=== PATIENT | female | born 1980 | race Two or more races ===

== ENCOUNTER 2021-03-21 10:23 | Emergency (ER) | payer OTHER ==
[~2021-03-21] VITALS: Ht 162.6 cm; Wt 81.6 kg
[2021-03-21 13:00] VITALS: BP 132/68
[2021-03-21] MEDS ORDERED: ACETAMINOPHEN 500 MG TAB PO ONE (13:15)
== END 2021-03-21 13:56 | disposition home or self-care (01) ==
LOC: ER 10:23
DX: S00.03XA Contusion of scalp, initial encounter (principal); W18.39XA Other fall on same level, initial encounter; Y93.89 Activity, other specified; Y92.89 Other specified places as the place of occurrence of the external cause; Y99.0 Civilian activity done for income or pay
CPT/HCPCS: 70450

== ENCOUNTER 2025-05-03 09:02 | Emergency (ER) | payer OTHER ==
[~2025-05-03] VITALS: Ht 162.6 cm; Wt 78.8 kg
--- NOTE | 2025-05-03 09:32 | ED.PDOC ---
GI ASSESSMENT HPI Comments A 44 YEAR OLD FEMALE PRESENTS TO THE ED WITH COMPLAINT OF LLQ ABDOMINAL PAIN WITH N/V. PATIENT STATES SHE HAS BEEN EXPERIENCING LEFT LOWER QUADRANT ABDOMINAL PAIN WITH OCCASIONAL NAUSEA AND VOMITING FOR THE PAST 1 WEEK. PATIENT NOTES SHE HAS ALSO BEEN EXPERIENCING MILD CONSTIPATION. PATIENT DENIES DYSURIA, HEMATURIA, FLANK PAIN, FEVER, CHILLS, SHORTNESS OF BREATH, CHEST PAIN, HEADACHE, OR OTHER COMPLAINTS. NO OTHER SYMPTOMS OR MODIFYING FACTORS AT THIS TIME. PATIENT IS ALERT, ORIENTED X 4, AND HAS STEADY GAIT. Chief Complaint: Abdominal Pain Time Seen by MD: 09:06 Primary Care Provider: NOREENIES Reviewed Notes: Nurses Notes, Medications, Allergies Allergies: Coded Allergies: NO KNOWN ALLERGIES (Unverified , 03/21/21) Information Source: Patient Mode of Arrival: Ambulatory Timing: Weeks Duration: Since onset Prehospital treatment: None Quality: Aching, Cramping Vomitus: Food Particles Stool: Minimal Severity: Moderate Recent: None Recent Hx of: None Pain Location: LLQ Modifying Factors: Nothing Associated sign and symptoms: Nausea, Vomiting, Abdominal Pain Past Medical History PAST MEDICAL HISTORY: Denies Surgical History: Denies all surgeries 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 Family History Family History: Reviewed,noncontributory to illness Social History Smoker: Non-Smoker Alcohol: Denies ETOH Use Drugs: Denies Drug Use Lives In: Home Constitutional: denies: chills, diaphoresis, fatigue, fever, malaise, sweats, weakness, others EENTM: denies: blurred vision, double vision, ear bleeding, ear discharge, ear drainage, ear pain, ear ringing, eye pain, eye redness, hearing loss, mouth pain, mouth swelling, nasal discharge, nose bleeding, nose congestion, nose pain, photophobia, tearing, throat pain, throat swelling, voice changes, others Respiratory: denies: cough, hemoptysis, orthopnea, SOB at rest, shortness of breath, SOB with excertion, stridor, wheezing, others Cardiovascular: denies: chest pain, dizzy spells, diaphoresis, Dyspnea on exertion, edema, irregular heart beat, left arm pain, lightheadedness, palpitations, PND, syncope, others Gastrointestinal: reports: abdominal pain, constipated, nausea; denies: abdomen distended, blood streaked bowels, diarrhea, dysphagia, difficulty swallowing, hematemesis, melena, poor appetite, poor fluid intake, rectal bleeding, rectal pain, vomiting, others Genitourinary: denies: abnormal vagina bleeding, burning, dyspareunia, dysuria, flank pain, frequency, hematuria, incontinence, pain, , vagina discharge, urgency, others Neurological: denies: dizziness, fainting, headache, left sided numbness, left sided weakness, numbness, paresthesia, pre-existing deficit, right sided numbness, right sided weakness, seizure, speech problems, tingling, tremors, weakness, others Musculoskeletal: denies: back pain, gout, joint pain, joint swelling, muscle pain, muscle stiffness, neck pain, others Integumetry: denies: bruises, change in color, change in hair/nails, dryness, laceration, lesions, lumps, rash, wounds, others Allergic/Immunocompromised: denies: Difficulty Healing, Frequent Infections, Hives, Itching, others Hematologic/Lymphatic: denies: anemia, blood clots, easy bleeding, easy bruising, swollen glands, others Endocrine: denies: excessive hunger, excessive sweating, excessive thirst, excessive urination, flushing, intolerance to cold, intolerance to heat, unexplained weight gain, unexplained weight loss, others Psychiatric: denies: anxiety, bipolar disorder, depression, hopeless, panic disorder, schizophrenia, sleepless, suicidal, others All Other Systems: Reviewed and Negative Physical Exam General Appearance: No Apparent Distress, Normal HEENT: Normal ENT Inspection, PERRL/EOMI, Pharynx Normal, TMs Normal Neck: Full Range of Motion, Non-Tender, Normal, Normal Inspection Respiratory: Chest Non-Tender, Lungs Clear, No Accessory Muscle Use, No Respiratory Distress, Normal Breath Sounds Cardiovascular: No Edema, No JVD, No Murmur, No Gallop, Normal Peripheral Pulses, Regular Rate/Rhythm Breast Exam: Deferred Gastrointestinal: LLQ, No Organomegaly, No Pulsatile Mass, Normal Bowel Sounds, Soft, Tenderness (LEFT LOWER ABD, NO GUARDING AND REBOUND TENDERNESS. 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 Was a procedure done?: No GI differential Dx Differential Diagnosis: Bowel Obstruction, Constipation, Diverticular disease, Inflammatory BD, Pancreatitis, UTI, Kidney Stone X-Ray, Labs, Meds, VS Vital Signs Date Time Temp Pulse Resp B/P (MAP) Pulse Ox O2 Delivery O2 Flow Rate FiO2 05/03/25 10:36 77 18 99 Room Air 05/03/25 10:36 98.7 77 18 120/85 (97) 99 98.7 05/03/25 09:04 98.0 82 18 128/74 98 98.0 Lab Test 05/03/25 09:19 Range/Units White Blood Count 5.7 4.4-10.8 10^3/uL Red Blood Count 4.42 4.0-5.20 10^6/uL Hemoglobin 11.5 L 12.2-16.2 g/dL Hematocrit 34.9 L 36.0-46.0 % Mean Corpuscular Volume 79.0 L 80.0-100.0 fL Mean Corpuscular Hemoglobin 26.1 L 28.0-32.0 pg Mean Corpuscular Hemoglobin Concent 33.0 32.0-36.0 g/dL Red Cell Distribution Width 15.7 H 11.8-14.3 % Platelet Count 362 140-450 10^3/uL Mean Platelet Volume 7.9 6.9-10.8 fL Neutrophils (%) (Auto) 50.0 37.0-80.0 % Lymphocytes (%) (Auto) 38.8 10.0-50.0 % Monocytes (%) (Auto) 8.6 0.0-12.0 % Eosinophils (%) (Auto) 1.8 0.0-7.0 % Basophils (%) (Auto) 0.8 0.0-2.0 % Neutrophils # (Auto) 2.8 1.6-8.6 10 ^3/uL Lymphocytes # (Auto) 2.2 0.4-5.4 10 ^3/uL Monocytes # (Auto) 0.5 0-1.3 10 ^3/uL Eosinophils # (Auto) 0.1 0-0.8 10 ^3/uL Basophils # (Auto) 0 0-0.2 10 ^3/uL Nucleated Red Blood Cells 0.0 % Sodium Level 138 136-145 mmol/L Potassium Level 4.0 3.5-5.1 mmol/L Chloride Level 104 98-107 mmol/L Carbon Dioxide Level 24 20-31 mmol/L Anion Gap 10 5-15 Blood Urea Nitrogen 11 9-23 mg/dL Creatinine 0.66 0.550-1.02 mg/dL Glomerular Filtration Rate Calc 110 >90 mL/min BUN/Creatinine Ratio 16.7 10.0-20.0 Serum Glucose 90 74-106 mg/dL Calcium Level 9.0 8.7-10.4 mg/dL Indication: LEFT LOWER ABD PAIN WITH N/VX ONE WEEK Technique: CT axial images of the abdomen and pelvis are obtained without contrast. Coronal and sagittal reformats were obtained. Radiation Dose Information: CTDI volume is 8.39 mGy. Dose-length product is 438 mGy*cm Comparison: None FINDINGS: There is limited interpretation of the abdomen and pelvis without administration of intravenous contrast. Lung bases demonstrate no pleural effusion. 2.2 cm pericardial cyst. Adrenal glands, spleen, pancreas and liver unremarkable in shape. No CT evidence for cholelithiasis. No hydronephrosis/ nephrolithiasis. Stomach is partially distended. Small bowel loops are normal in caliber. Moderate volume stool in the colon. Bladder is partially distended. No free pelvic fluid. No inguinal lymphadenopathy. [id number] thoracolumbar degenerative disc disease most pronounced at L4- 5. IMPRESSION: Limited evaluation without contrast. No hydronephrosis / nephrolithiasis. Moderate volume stool in the colon. Other findings as described. ATED BY: GARRY FRANCO MD DICTATED DATE/TIME: 05/03/251014 SIGNED BY: GARRY FRANCO MD SIGNED DATE/TIME: 05/03/251014 CC: X-Ray, Labs, Meds, VS Comment EXTERNAL MEDICAL RECORDS REVIEWED: [NONE] INDEPENDENT HISTORIANS: [NONE] SOCIAL DETERMINANTS OF HEALTH: [NONE] LABS ORDERED: CBC, BMP, UA REVIEWED AND INTERPRETED RESULTS: NORMAL IMAGING ORDERED: CT ABD/PEL TREATMENTS ORDERED: PT DECLINED PAIN MEDICATION AT THIS TIME. PROCEDURES PERFORMED: NONE CRITICAL CARE TIME: NONE I HAVE DISCUSSED THE PATIENT WITH THE ATTENDING PHYSICIAN DR. BO AND HE AGREES WITH THE PATIENT'S PLAN OF CARE AND DISPOSITION. BASED ON HISTORY OF PRESENT ILLNESS, AND PHYSICAL EXAM, PATIENT WILL BE DISCHARGED HOME. DISCUSSED PLAN FOR DISCHARGE HOME WITH RX [LACTULOSE AND TYLENOL 1GM]. MEDICATION WARNINGS GIVEN. SHARED DECISION MAKING: DISCUSSED WITH PATIENT THAT THEIR WORKUP WAS NORMAL. PATIENT INSTRUCTED TO FOLLOW UP WITH PRIMARY CARE PROVIDER IN 1-2 DAYS FOR RE- EVALUATION OF SYMPTOMS. PATIENT VERBALIZES UNDERSTANDING TO RETURN TO ED FOR NEW OR WORSENING SYMPTOMS OR IF FOLLOW UP WITH PCP CANNOT BE OBTAINED. PATIENT FEELS COMFORTABLE GOING HOME AT THIS TIME. ALL QUESTIONS ADDRESSED AT TIME OF DISCHARGE. Images Reviewed?: Images reviewed and evaluated by me Time of 1ST Reevaluation: 11:00 Reevaluation 1ST: Improved Patient Education/Counseling: Diagnosis, Treatment, Need For Follow Up Family Education/Counseling: Diagnosis, Treatment, Need For Follow Up Medical Screening: No EMC Exist At This Time SEPSIS Sepsis Screen Date sepsis recognized/suspect: May 03, 2025 Time Sepsis recognized/suspect: 904 Recent Procedure: No On Antibiotic Therapy: No Respiratory Rate >20: No Heart Rate >90: No Temp<36 C (96.8 F) or >38.3 C: No SBP <90 or MAP <65 mmHG: No New Acute Mental Status Change: No Is the patient on CPAP, BIPAP,: No Physician Orders Urinalysis (05/03/25 09:13) Ct Ab Pel Wo Con-No Oral Or Iv (05/03/25 09:27) Vital Signs Date Time Temp Pulse Resp B/P (MAP) Pulse Ox O2 Delivery O2 Flow Rate FiO2 05/03/25 10:36 77 18 99 Room Air 05/03/25 10:36 98.7 77 18 120/85 (97) 99 98.7 05/03/25 09:04 98.0 82 18 128/74 98 98.0 Laboratory Tests Test 05/03/25 09:19 White Blood Count 5.7 10^3/uL (4.4-10.8) Departure 1 Departure Time of Disposition: 11:00 Impression: Primary Impression: Acute constipation Disposition: 01 HOME / SELF CARE / HOMELESS Condition: Stable Additional Instructions: FOLLOW-UP WITH PCP IN 1 TO 2 DAYS. TAKE MEDICATIONS PRESCRIBED. RETURN TO ED FOR ANY NEW OR WORSENING SYMPTOMS. e-Prescriptions Acetaminophen (Tylenol Extra Strength Fo) 500 Mg Tab 1000 MG PO BID, #30 TAB Prov: JUAN LUIS CABRERA 05/03/25 Lactulose (Lactulose) 10 Gm/15 Ml Fabienne 30 ML PO BID, #250 ML Prov: JUAN LUIS CABRERA 05/03/25 Discharged With: Self Critical Care Note Critical Care Time?: No Stability Stability form required: No I personally scribed for JUAN LUIS CABRERA ([email or web address]) on 05/03/25 at 09:32. Electronically submitted by Deo Fields ([email or web address]). I personally scribed for JUAN LUIS CABRERA ([email or web address]) on 05/03/25 at 10:33. Electronically submitted by Deo Fields ([email or web address]). JUAN LUIS CABRERA May 03, 2025 09:32
[2025-05-03 09:40] LABS: Chloride 104 mmol/L (98-107); Potassium 4.0 mmol/L (3.5-5.1); Sodium 138 mmol/L (136-145)
[2025-05-03 09:46] LABS: Glucose 90 mg/dL (74-106)
[2025-05-03 09:50] LABS: Nucleated Red Blood Cells % 0.0 %
[2025-05-03 09:52] LABS: Hematocrit 34.9 % (36.0-46.0); Hemoglobin 11.5 g/dL (12.2-16.2); Mean Corpuscular Hemoglobin 26.1 pg (28.0-32.0); Mean Corpuscular Volume 79.0 fL (80.0-100.0)
[2025-05-03 09:54] LABS: Anion Gap 10 (5-15)
[2025-05-03 09:58] LABS: Calcium 9.0 mg/dL (8.7-10.4); Carbon Dioxide 24 mmol/L (20-31)
[2025-05-03 10:00] LABS: BUN/Creatinine Ratio 16.7 (10.0-20.0); Blood Urea Nitrogen 11 mg/dL (9-23)
--- NOTE | 2025-05-03 10:30 | DVH ---
Indication: LEFT LOWER ABD PAIN WITH N/VX ONE WEEK Technique: CT axial images of the abdomen and pelvis are obtained without contrast. Coronal and sagit celso reformats were obtained. Radiation Dose Information: CTDI volume is 8.39 mGy. Dose-length product is 438 mGy*cm Comparison: None FINDINGS: There is limited interpretation of the abdomen and pelvis without administration of intravenous contr ast. Lung bases demonstrate no pleural effusion. 2.2 cm pericardial cyst. Adrenal glands, spleen, pancreas and liver unremarkable in shape. No CT evidence for cholelithiasis. No hydronephrosis/ nephrolithiasis. Stomach is partially distended. Small bowel loops are normal in caliber. Moderate volume stool in the colon. Bladder is partially distended. No free pelvic fluid. No inguinal lymphadenopathy. [id number] thoracolumbar degenerative disc disease most pronounced at L4-5. IMPRESSION: Limited evaluation without contrast. No hydronephrosis / nephrolithiasis. Moderate volume stool in the colon. Other findings as described.
[2025-05-03 10:36] VITALS: BP 120/85; PULSE 77; RESP 18; TEMP 98.7; O2SAT 99
[2025-05-03] MEDS ORDERED: LACT10SO3 PO (10:42)
[2025-05-03] MEDS ORDERED: ACET-1304 PO (10:42)
[2025-05-03 11:17] LABS: Urine Protein, UAD Negative (Negative)
== END 2025-05-03 10:51 | disposition home or self-care (01) ==
LOC: ER 09:02
DX: K59.00 Constipation, unspecified (principal)
CPT/HCPCS: 36415; 74176; 80048; 81001; 85025

== ENCOUNTER 2025-05-15 15:14 | Emergency (ER) | payer OTHER, MEDICAID ==
[~2025-05-15] VITALS: Ht 162.6 cm; Wt 77.2 kg
[~2025-05-15 15:14] MED LIST: ACET-1304 PO; LACT10SO3 PO
[2025-05-15 16:18] LABS: Hemoglobin 11.8 g/dL (12.2-16.2); Nucleated Red Blood Cells % 0.0 %
[2025-05-15 16:19] LABS: Hematocrit 36.1 % (36.0-46.0); Mean Corpuscular Hemoglobin 26.0 pg (28.0-32.0); Mean Corpuscular Volume 79.2 fL (80.0-100.0)
[2025-05-15 16:28] LABS: Anion Gap 10 (5-15); Carbon Dioxide 25 mmol/L (20-31); Chloride 104 mmol/L (98-107); Potassium 4.2 mmol/L (3.5-5.1); Sodium 139 mmol/L (136-145)
[2025-05-15 16:29] LABS: Calcium 9.4 mg/dL (8.7-10.4)
[2025-05-15 16:34] LABS: BUN/Creatinine Ratio 33.9 (10.0-20.0); Blood Urea Nitrogen 20 mg/dL (9-23); Glucose 81 mg/dL (74-106)
[2025-05-15 16:37] LABS: Acetaminophen < 2.0 UG/ML (10.0-20.0); Salicylate < 3.0 mg/dL (-30)
--- NOTE | 2025-05-15 16:38 | ED.PDOC ---
Psychiatric HPI Comments 44 y/o F, with no prior psychiatric history presents to the ED for CC of suicidal ideation. Patient relays, that she has been having suicidal ideations [id number]. Patient states, suicidal ideation stemmed from retaliation at work by boss, constantly accusing her of work not being done. Patient reports plan of, driving car into incoming traffic. Patient further reports, intermittent auditory hallucinations. Patient denies homicidal ideations or visual hallucinations. No other symptoms or modifying factors are present at this time. Chief Complaint: Suicidal Time Seen by MD: 16:00 Primary Care Provider: CHIP Reviewed Notes: Nurses Notes, Medications, Allergies Information Source: Patient Mode of Arrival: Ambulatory Severity: Able to Care for Self Severity of Pain: None Severity of Mental Status: Moderate Severity of Symptoms: Moderate Timing: Weeks Duration: Since onset Prehospital treatment: None Ingestion: None Current substance abuse: None Stressors: Work History of: None Quality: Hallucinations Location: None Location of pain or injury: None Associated signs and symptoms: None Past Medical History PAST MEDICAL HISTORY: Denies Surgical History: Denies all surgeries 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 Family History Family History: Reviewed,noncontributory to illness Social History Smoker: Non-Smoker Alcohol: Denies ETOH Use Drugs: Denies Drug Use Lives In: Home Constitutional: denies: chills, diaphoresis, fatigue, fever, malaise, sweats, weakness, others EENTM: denies: blurred vision, double vision, ear bleeding, ear discharge, ear drainage, ear pain, ear ringing, eye pain, eye redness, hearing loss, mouth pain, mouth swelling, nasal discharge, nose bleeding, nose congestion, nose pain, photophobia, tearing, throat pain, throat swelling, voice changes, others Respiratory: denies: cough, hemoptysis, orthopnea, SOB at rest, shortness of breath, SOB with excertion, stridor, wheezing, others Cardiovascular: denies: chest pain, dizzy spells, diaphoresis, Dyspnea on exe rtion, edema, irregular heart beat, left arm pain, lightheadedness, palpitations, PND, syncope, others Gastrointestinal: denies: abdomen distended, abdominal pain, blood streaked bowels, constipated, diarrhea, dysphagia, difficulty swallowing, hematemesis, melena, nausea, poor appetite, poor fluid intake, rectal bleeding, rectal pain, vomiting, others Genitourinary: denies: abnormal vagina bleeding, burning, dyspareunia, dysuria, flank pain, frequency, hematuria, incontinence, pain, , vagina discharge, urgency, others Neurological: denies: dizziness, fainting, headache, left sided numbness, left sided weakness, numbness, paresthesia, pre-existing deficit, right sided numbness, right sided weakness, seizure, speech problems, tingling, tremors, weakness, others Musculoskeletal: denies: back pain, gout, joint pain, joint swelling, muscle pain, muscle stiffness, neck pain, others Integumetry: denies: bruises, change in color, change in hair/nails, dryness, laceration, lesions, lumps, rash, wounds, others Allergic/Immunocompromised: denies: Difficulty Healing, Frequent Infections, Hives, Itching, others Hematologic/Lymphatic: denies: anemia, blood clots, easy bleeding, easy bruising, swollen glands, others Endocrine: denies: excessive hunger, excessive sweating, excessive thirst, excessive urination, flushing, intolerance to cold, intolerance to heat, unexplained weight gain, unexplained weight loss, others Psychiatric: reports: suicidal; denies: anxiety, bipolar disorder, depression, hopeless, panic disorder, schizophrenia, sleepless, others All Other Systems: Reviewed and Negative Physical Exam General Appearance: No Apparent Distress, Normal HEENT: Normal ENT Inspection, Pharynx Normal Neck: Full Range of Motion, Non-Tender, Normal, Normal Inspection Respiratory: Chest Non-Tender, Lungs Clear, No Accessory Muscle Use, No Respiratory Distress, Normal Breath Sounds Cardiovascular: No Edema, No Murmur, No Gallop, Normal Peripheral Pulses, Regular Rate/Rhythm Breast Exam: Deferred Gastrointestinal: No Organomegaly, Non Tender, No Pulsatile Mass, Normal Bowel Sounds, Soft Genitalia: Deferred Pelvic: Deferred Rectal: Deferred Extremities: No calf tenderness, Normal capillary refill, Normal inspection, Normal range of motion, Non-tender, No pedal edema Musculoskeletal : Apperance: Normal Neurologic: 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 Was a procedure done?: No Psych Differential Dx Psych. Differential Dx: Anxiety, Bipolar Disorder, Depression, Hopeless, Schizoprenia, Suicidal OD Differential Dx: Depression, Suicidal Attempt, Suicidal Gesture X-Ray, Labs, Meds, VS Vital Signs Date Time Temp Pulse Resp B/P (MAP) Pulse Ox O2 Delivery O2 Flow Rate FiO2 05/16/25 05:26 99.0 82 17 124/83 (97) 100 99.0 05/15/25 21:00 80 18 132/82 (99) 100 05/15/25 19:30 97.9 86 20 141/81 (101) 100 97.9 05/15/25 19:30 86 20 100 Room Air* 0 21 05/15/25 18:00 77 17 130/85 (100) 99 05/15/25 17:06 98 Room Air* 0 21 05/15/25 17:03 88 17 98 Room Air* 0 21 05/15/25 16:00 98.4 85 17 121/87 (98) 99 98.4 05/15/25 15:20 97.9 82 16 124/84 82 97.9 Lab Test 05/15/25 19:00 05/15/25 16:05 Range/Units Urine Test Negative Negative Urine Opiates Screen Neg NEGATIVE Urine Fentanyl Screen Neg NEGATIVE Urine Barbiturates Screen Neg NEGATIVE Urine Phencyclidine Screen Neg NEGATIVE Urine Amphetamines Screen Neg NEGATIVE Urine Benzodiazepines Screen Neg NEGATIVE Urine Cocaine Screen Neg NEGATIVE Urine Cannabinoids Screen Neg NEGATIVE White Blood Count 7.2 4.4-10.8 10^3/uL Red Blood Count 4.55 4.0-5.20 10^6/uL Hemoglobin 11.8 L 12.2-16.2 g/dL Hematocrit 36.1 36.0-46.0 % Mean Corpuscular Volume 79.2 L 80.0-100.0 fL Mean Corpuscular Hemoglobin 26.0 L 28.0-32.0 pg Mean Corpuscular Hemoglobin Concent 32.8 32.0-36.0 g/dL Red Cell Distribution Width 15.1 H 11.8-14.3 % Platelet Count 389 140-450 10^3/uL Mean Platelet Volume 7.7 6.9-10.8 fL Neutrophils (%) (Auto) 52.8 37.0-80.0 % Lymphocytes (%) (Auto) 37.2 10.0-50.0 % Monocytes (%) (Auto) 8.2 0.0-12.0 % Eosinophils (%) (Auto) 1.2 0.0-7.0 % Basophils (%) (Auto) 0.6 0.0-2.0 % Neutrophils # (Auto) 3.8 1.6-8.6 10 ^3/uL Lymphocytes # (Auto) 2.7 0.4-5.4 10 ^3/uL Monocytes # (Auto) 0.6 0-1.3 10 ^3/uL Eosinophils # (Auto) 0.1 0-0.8 10 ^3/uL Basophils # (Auto) 0 0-0.2 10 ^3/uL Nucleated Red Blood Cells 0.0 % Sodium Level 139 136-145 mmol/L Potassium Level 4.2 3.5-5.1 mmol/L Chloride Level 104 98-107 mmol/L Carbon Dioxide Level 25 20-31 mmol/L Anion Gap 10 5-15 Blood Urea Nitrogen 20 9-23 mg/dL Creatinine 0.59 0.550-1.02 mg/dL Glomerular Filtration Rate Calc 113 >90 mL/min BUN/Creatinine Ratio 33.9 H 10.0-20.0 Serum Glucose 81 74-106 mg/dL Calcium Level 9.4 8.7-10.4 mg/dL Salicylates Level < 3.0 -30 mg/dL Acetaminophen Level < 2.0 L 10.0-20.0 UG/ML Plasma/Serum Blood Alcohol 28.7 H <10 mg/dL Time of 1ST Reevaluation: 16:30 Reevaluation 1ST: Unchanged Time of 2ND Reevaluation: 20:50 Reevaluation 2ND: Unchanged (Still waiting tele psych eval. Was signed out to Dr. Jeffery) Patient Education/Counseling: Diagnosis, Treatment Family Education/Counseling: No Family Present Additional Information Reviewed patient's previous visit(s): 05/03/25 DX:ACUTE CONSTIPATION The following tests were ordered, and results were reviewed by me: DRUG SCREEN, ACETAMINOPHEN, SALICYLATE, URINE ETHANOL, TEST UA, CBC, BMP I discussed treatments and results with medical personnel and: PATIENT Comprehensive systems review obtained and negative except for what is stated in the HPI. Departure 1 Departure Time of Disposition: 05:39 Impression: Primary Impression: Depression Additional Impressions: Suicidal ideation Patient needs psychiatric hold for evaluation Disposition: 01 HOME / SELF CARE / HOMELESS Condition: Stable Additional Instructions: Additional instructions: Please read all instructions provided in this packet carefully. You MUST follow-up with your primary care/family doctor in 1 to 2 days. If you are unable to see your primary care/family doctor, please return to our emergency room for re-assessment and re-evaluation in 1 to 2 days. Return to the emergency room here in our facility or to the nearest ER [facility] if your symptoms change or worsen. CONSULTATIONS: you MUST Follow-up for consultation as soon as possible with: ----Psychiatry in 1-2 days. Please call for appointment. You MUST call the consultants office yourself to make an appointment. You may need to arrange that through your insurance and/or your primary/family doctor. If you are unable to see the executive talent acquisition consultant in 1 to 2 days, you must return to our emergency room (or any other ER of your choice) for re-assessment and re- evaluation. Adequate fluid hydration. Although you have been discharged from the Emergency Department, this does not mean that you have a "clean bill of health". No definitive diagnosis for your symptoms has been made today. It is possible that you are in the process of developing a serious illness. This is why you must return to the ED without fail if any new or worsening symptoms develop. Per Dr. Paula Plan: Does not warrant involuntary inpatient psychiatric hospitalization or 5150 hold No acute safety concerns Pt can be safely discharged back to current residence Recommend d/c pt on Amitriptyline 50 mg qhs prn insomnia/SCHULTZ x 30 days Risks/benefits/alternative treatments discussed, informed consent provided by pt Supportive tx provided, discussed safety plan with pt Encouraged mindfulness techniques (reading, walking, meditation, journaling, exercise, deep breathing) during times of stress Please provide pt MH resources prior to discharge per pts request for psychotherapy Encouraged f/u with PCP for routine medical/preventive care Instructed pt to call/text [phone] or return to ED if MH symptoms worsen or new onset SI/HI upon discharge Pt verbalized understanding and is receptive to above tx plan This case was discussed with ED nurse/provider and all parties in agreement with above tx plan Isidoro Paula MD Plan discussed with: Patient ISIDORO PAULA MD e-Prescriptions Amitriptyline Hcl (Amitriptyline Hcl) 50 Mg Tab 1 TAB PO QHSP PRN for 30 Days, #30 TAB 0 Refills Prov: NOMAN JEFFERY DO 05/16/25 Discharged With: Self Critical Care Note Critical Care Time?: No Stability Stability form required: No Heart Score Heart Score: Heart Score Response (Comments) Value History N/A 0 EKG N/A 0 Age N/A 0 Risk Factors N/A 0 Troponin N/A 0 Total 0 I personally scribed for VERITO YIN MD ([email or web address]) on 05/15/25 at 16:38. Electronically submitted by Ana Travis ([email or web address]). I personally scribed for VERITO YIN MD ([email or web address]) on 05/15/25 at 17:11. Electronically submitted by Ana Travis ([email or web address]). VERITO YIN MD May 15, 2025 16:38 NOMAN JEFFERY DO May 16, 2025 05:41
[2025-05-15 17:03] VITALS: PULSE 88; RESP 17; O2SAT 98
[2025-05-15 19:30] VITALS: PULSE 86; RESP 20; O2SAT 100
--- NOTE | 2025-05-15 19:51 | DVHINCON2 ---
Date of Service if different f: May 15, 2025 Time of Service: 19:41 Consultation ([place]) Labs Laboratory Tests Test 05/15/25 16:05 05/15/25 19:00 White Blood Count 7.2 10^3/uL (4.4-10.8) Red Blood Count 4.55 10^6/uL (4.0-5.20) Hemoglobin 11.8 g/dL (12.2-16.2) Hematocrit 36.1 % (36.0-46.0) Mean Corpuscular Volume 79.2 fL (80.0-100.0) Mean Corpuscular Hemoglobin 26.0 pg (28.0-32.0) Mean Corpuscular Hemoglobin Concent 32.8 g/dL (32.0-36.0) Red Cell Distribution Width 15.1 % (11.8-14.3) Platelet Count 389 10^3/uL (140-450) Mean Platelet Volume 7.7 fL (6.9-10.8) Neutrophils (%) (Auto) 52.8 % (37.0-80.0) Lymphocytes (%) (Auto) 37.2 % (10.0-50.0) Monocytes (%) (Auto) 8.2 % (0.0-12.0) Eosinophils (%) (Auto) 1.2 % (0.0-7.0) Basophils (%) (Auto) 0.6 % (0.0-2.0) Neutrophils # (Auto) 3.8 10 ^3/uL (1.6-8.6) Lymphocytes # (Auto) 2.7 10 ^3/uL (0.4-5.4) Monocytes # (Auto) 0.6 10 ^3/uL (0-1.3) Eosinophils # (Auto) 0.1 10 ^3/uL (0-0.8) Basophils # (Auto) 0 10 ^3/uL (0-0.2) Nucleated Red Blood Cells 0.0 % Sodium Level 139 mmol/L (136-145) Potassium Level 4.2 mmol/L (3.5-5.1) Chloride Level 104 mmol/L (98-107) Carbon Dioxide Level 25 mmol/L (20-31) Anion Gap 10 (5-15) Blood Urea Nitrogen 20 mg/dL (9-23) Creatinine 0.59 mg/dL (0.550-1.02) Glomerular Filtration Rate Calc 113 mL/min (>90) BUN/Creatinine Ratio 33.9 (10.0-20.0) Serum Glucose 81 mg/dL (74-106) Calcium Level 9.4 mg/dL (8.7-10.4) Salicylates Level < 3.0 mg/dL (-30) Acetaminophen Level < 2.0 UG/ML (10.0-20.0) Plasma/Serum Blood Alcohol 28.7 mg/dL (<10) Vitals Vital Signs Date Time Temp Pulse Resp B/P (MAP) Pulse Ox O2 Delivery O2 Flow Rate FiO2 05/15/25 18:00 77 17 130/85 (100) 99 05/15/25 17:06 Room Air* 0 21 05/15/25 16:00 98.4 98.4 PSYCHIATRY CONSULTATION BRIEF NOTE Attempted to speak to RN and see patient, with multiple calls. However, when able to reach someone, informed RN is giving sign out, is not available. Asked to be re-paged when RN available, [email or web address]. However, no page before 1930. Call center informed. - Please page when team ready for psychiatry consult CONNOR SALCEDO MD May 15, 2025 19:51
[2025-05-15 20:06] LABS: Amphetamine Screen, Urine Neg (NEGATIVE); Barbiturate Scree,Urine Neg (NEGATIVE); Benzodiazephine Screen, Urine Neg (NEGATIVE); Cannabinoid Screen, Urine Neg (NEGATIVE); Cocaine Screen, Urine Neg (NEGATIVE); Opiate Scree,Urine Neg (NEGATIVE); Phencyclidine Screen, Urine Neg (NEGATIVE)
--- NOTE | 2025-05-16 03:16 | DVHINCON2 ---
Date of Service if different f: May 16, 2025 Time of Service: 02:54 Consult Consult Note PSYCHIATRY ED NEW CONSULT HPI: 44 yo pt with no known PPH presents to ED BIB self for safety, psychiatric stabilization, and possible med initiation/optimization in setting of passive SI. Psychiatry consulted for safety evaluation and recommendations in context of current presentation Pt reports over past several weeks experiencing some depressed mood, poor sleep, SCHULTZ/neck pain appetite, some amotivation, feeling "overwhelmed" with minimal anxiety symptoms. Also fleeting SI with no plan/intent. 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 Denies HI/AVH/paranoia/catatonic/perceptual disturbances. No overt manic, psychotic, MDD, cognitive, dissociative phenomena, panic, OCD, PTSD, or somatic symptoms noted. Overall appears future oriented/goal directed. Denies acute psychosocial stressors Does not have active outpt MH services established at this time, never sought outpt MH services in past Currently not on any psychotropic agents, no prior psych med trials SHONDA hx: Denies ETOH, THC or IDU SH: with 3 children whom she resides with, employed at [employer], some support system noted (immediate family). Unknown trauma hx FH: Denies FH of psych hospitalizations, suicide attempts, or completed suicides PMH: No acute medical/chronic pain issues, hx of seizures/TBI, HIV/hep C, cardiac dz, or recent head injuries, NKDA Denies hx of SI/SIB/SA/PSG or prior psych hospitalizations/5150 holds. Denies history of violence, aggression, or assaultive behaviors. Denies recent hx of impulsivity, attention seeking behaviors, anger outbursts, emotional dysregulation, mood reactivity,or engaging in risky/reckless behaviors. Denies any legal problems. Does not have access to firearms Currently denies SI/HI/AVH. Identifies self/family as PPF. No acute safety concerns noted during encounter MSE: General Appearance/Behavior: Alert/awake; appears stated age, slightly overweight, fair grooming/hygiene; calm/polite and cooperative, fair eye contact, no PMA/PMR Speech: coherent, rrr Thought Process: L/L/GD Thought Content: Abnormal Thoughts/Perceptions: denies dissociative symptoms Homicidality / Violent Thoughts: adamantly denies HI Suicidality: adamantly denies SI Hallucinations: denies AVTH Delusions: denies paranoia, persecutory, or grandiose delusions Obsessions /compulsions: None Judgment/Insight: fair/fair Mood & Affect: "okay" with mood-congruent, aappropriate Orientation: oriented x 3 Attention/Concentration: appears intact Cognition: grossly intact Assessment: 44 yo pt with no known PPH presents to ED BIB self for safety, psychiatric stabilization, and possible med initiation/optimization in setting of passive SI Currently denies SI/HI/AVH. Linear and appears future oriented/goal directed in thought with fair J/I. Identifies several protective factors including a desire to live, family support, etc. No hx of SA/SIB/violence/physical aggression or prior psych hospitalizations is reassuring. Pt medically cleared Presenting MH symptoms appear more secondary to difficulty controlling emotions and ineffective coping mechanisms in context of acute psychosocial stressor (see HPI) with minimal interference in daily functioning Does not presently show any signs of immediate danger to self/others or GD that would necessitate 5150 or involuntary psych admission. However offered voluntary psych hospitalization but pt declined. Also declined further ED observation/reevaluation. No acute safety concerns noted. Acute suicide/violence risk appears nonexistent to relatively low Pts symptoms should be managed safely in an outpatient setting -pt currently does not have psychiatrist/therapist out in community although interested in seeking MH resources prior to d/c for psychotherapy Currently not on any psychotropics. May benefit from an antidepressant to address depressive/insomnia/SCHULTZ symptoms exacerbated prior to this admission. Primary Diagnosis: Adjustment disorder with depressed mood. Depressive disorder unspecified Plan: Does not warrant involuntary inpatient psychiatric hospitalization or 5150 hold No acute safety concerns Pt can be safely discharged back to current residence Recommend d/c pt on Amitriptyline 50 mg qhs prn insomnia/SCHULTZ x 30 days Risks/benefits/alternative treatments discussed, informed consent provided by pt Supportive tx provided, discussed safety plan with pt Encouraged mindfulness techniques (reading, walking, meditation, journaling, exercise, deep breathing) during times of stress Please provide pt MH resources prior to discharge per pts request for psychotherapy Encouraged f/u with PCP for routine medical/preventive care Instructed pt to call/text [phone] or return to ED if MH symptoms worsen or new onset SI/HI upon discharge Pt verbalized understanding and is receptive to above tx plan This case was discussed with ED nurse/provider and all parties in agreement with above tx plan Isidoro Paula MD Plan discussed with: Patient ISIDORO PAULA MD May 16, 2025 03:16
[2025-05-16] MEDS ORDERED: AMIT50TA12 PO (03:19)
[2025-05-16 05:26] VITALS: BP 124/83; PULSE 82; RESP 17; TEMP 99; O2SAT 100
== END 2025-05-16 05:44 | disposition home or self-care (01) ==
LOC: ER 15:14
DX: R45.851 Suicidal ideations (principal); F32.A Depression, unspecified; Z79.899 Other long term (current) drug therapy
CPT/HCPCS: 36415; 80048; 80307; 80320; 80329; 81025; 85025